=== PATIENT | female | born 1965 | race Caucasian/White ===

== ENCOUNTER 2018-03-17 00:57 | Emergency (ER) | payer SELFPAY ==
[~2018-03-17] VITALS: Ht 167.6 cm; Wt 68.0 kg
--- NOTE | 2018-03-17 01:00 | NUR ---
PT BIB [facility]. FOUND UNCONSCIOUS ON SIDEWALK. NO HEAD INJURY. EMPTY BOTTLE AT SIDE. VSS
[2018-03-17] MEDS ORDERED: HALOPERIDOL LACTATE INJ 5 MG/ML VIAL IM ONE (02:00)
[2018-03-17] MEDS ORDERED: HALOPERIDOL LACTATE INJ 5 MG/ML VIAL ONE (02:01)
[2018-03-17] MEDS ORDERED: IBUPROFEN SUSP 100 MG/5 ML UDC ONE (04:42)
--- NOTE | 2018-03-17 07:09 | NUR ---
REPORT GIVEN TO ECHO [facility]AE[facility] FOR [facility]
--- NOTE | 2018-03-17 08:30 | NUR ---
PT ALERT ABLE TO BE COOPERATIVE SPEECH CLEAR WOULD LIKE TO GO HOME MD AWARE PT C/O OF RIGHT MIDDLE FINGER SWELLING.
[2018-03-17 09:24] VITALS: BP 113/80
--- NOTE | 2018-03-17 09:25 | NUR ---
PT DISCHARGED TO HOME CALLED FAMILY TO MEDICAL OFFICE ASST WALKED WITH STEADY GAIT RIGHT MIDDLE FINGER X-RAY SPLINT PLACED.
== END 2018-03-17 09:26 | disposition home or self-care (01) ==
LOC: ER 00:59
DX: S62.622A Displaced fracture of middle phalanx of right middle finger, initial encounter for closed fracture (principal); F10.129 Alcohol abuse with intoxication, unspecified; R45.1 Restlessness and agitation; R41.82 Altered mental status, unspecified; Y90.9 Presence of alcohol in blood, level not specified; W18.39XA Other fall on same level, initial encounter; Y93.89 Activity, other specified; Y92.89 Other specified places as the place of occurrence of the external cause; Y99.8 Other external cause status
CPT/HCPCS: 29130; 70450; 73120; 82962; 96372; 99284; A4606; J1630; Z7610